=== PATIENT | female | born 1955 | race Caucasian/White ===

== ENCOUNTER 2019-03-26 18:00 | Emergency (ER) | payer OTHER ==
--- NOTE | 2019-03-26 18:05 | ER Report ---
History and Physical Time Seen By MD: 18:01 HPI/ROS CHIEF COMPLAINT: Neck pain, altered mental status HISTORY OF PRESENT ILLNESS: 63-year-old female with a history of hypothyroidism on replacement moved to [facility] 10 weeks ago. She's been having some trouble adjusting to the altitude. She is return back to [place] and return if she really notes that when she comes back altitude. She does have some shortness of breath. Patient denies history of cardiac symptoms, hyperlipidemia or blood pressure problems. Patient's been caring for her 4 grandchildren ages 3,5,7 and 9 over the last week. This morning she woke up with severe left neck pain which got progressively worse today. She tried 2 ibuprofen this morning without improvement. She took a 3rd several hours later with no change. This afternoon she had an episode where she seemed unresponsive for approximately 1 minute, not talking. She did not collapse or lose muscle tone. Patient's been feeling very fatigued while caring for her grandchildren. Patient notes no vision changes, speech changes, numbness, tingling or weakness in any of her extremities. Patient also took some CBD oil this afternoon. Patient admits that her doctors advised her that her thyroid replacement need to be reduced. And that she is slightly hyperthyroid. She has not yet reduced it the last 2 months. REVIEW OF SYSTEMS: Respiratory: No cough, no dyspnea. Cardiovascular: No chest pain, no palpitations. Gastrointestinal: No vomiting, no abdominal pain. Musculoskeletal: No back pain. Allergies: Coded Allergies: No Known Drug Allergies (Unverified , 03/26/19) Home Meds Active Scripts Hydrocodone Bit/Acetaminophen (HYDROCODON-ACETAMINOPHEN 5-325) 1 Each Tablet, 1 EACH PO Q4-6H PRN for PAIN, #10 TAKE ONE TABLET BY MOUTH EVERY 4-6 HOURS NEEDED FOR PAIN Prov:CORINNE LUNA DO 03/26/19 Methocarbamol (ROBAXIN-750) 750 Mg Tablet, 1 TAB PO TID PRN for muscle spasm relief, #15 Prov:CORINNE LUNA DO 03/26/19 Reported Medications Levothyroxine Sodium (LEVOTHYROXINE SODIUM) 75 Mcg Tablet, 75 MCG PO QDAY, TAB 03/26/19 Reviewed Nurses Notes: Yes Old Medical Records Reviewed: Yes Constitutional Vital Sign - Last 24 Hours 03/26/19 03/26/19 03/26/19 03/26/19 18:01 18:06 18:12 19:00 Temp 98.4 Pulse 73 67 Resp 16 B/P (MAP) 143/91 (108) 143/91 119/68 (85) Pulse Ox 90 92 O2 Delivery Room Air O2 Flow Rate 2.0 Intake and Output 03/26/19 03/26/19 03/27/19 15:03 23:03 07:03 Intake Total 150 ml Balance 150 ml Physical Exam Vital signs stable, afebrile, pulse ox 90% on room air General Appearance: The patient is alert, has no immediate need for airway protection and no current signs of toxicity. Slightly pale appearing, slow mental affect, alert and oriented 3., No facial droop HEENT: Pupils equal and round no injection. TMs normal, oropharynx without redness or exudate. Membranes appear slightly dry Respiratory: Chest is non tender, lungs are clear to auscultation. Cardiac: regular rate and rhythm, no murmur Gastrointestinal: Abdomen is soft and non tender, no masses, bowel sounds normal. Musculoskeletal: Neck: Neck is supple and non tender. Extremities have full range of motion and are non tender. Skin: No rashes or lesions. Neuro alert and oriented 3, cranial nerves II through XII intact motor 5/5 supervisor doping, sensory intact to light touch 4 DIFFERENTIAL DIAGNOSIS: After history and physical exam differential diagnosis was considered for altered mental status including but not limited to hypoglycemia, infectious process, electrolyte abnormality, head injury and intoxicants. Additionally,weakness including but not limited to electrolyte abnormality, depression, anxiety, CVA, spinal cord abnormality, and infectious causes. Medical Decision Making Data Points Result Diagram: 03/26/19180903/26/191809 Laboratory Hematology Test 03/26/19 18:10 White Blood Count 13.1 k/uL (4.5-11.0) H Red Blood Count 5.42 M/uL (4.17-5.56) Hemoglobin 15.6 g/dL (12.0-16.0) Hematocrit 45.9 % (34.0-47.0) Mean Corpuscular Volume 84.6 fL (80.0-96.0) Mean Corpuscular Hemoglobin 28.8 pg (26.0-33.0) Mean Corpuscular Hemoglobin Concent 34.0 g/dL (32.0-36.0) Red Cell Distribution Width 14.1 % (11.5-14.5) Platelet Count 302 K/uL (150-450) Mean Platelet Volume 8.0 fL (7.2-11.1) Neutrophils (%) (Auto) 64.1 % (39.4-72.5) Lymphocytes (%) (Auto) 26.1 % (17.6-49.6) Monocytes (%) (Auto) 7.8 % (4.1-12.4) Eosinophils (%) (Auto) 1.0 % (0.4-6.7) Basophils (%) (Auto) 1.0 % (0.3-1.4) Nucleated RBC Relative Count (auto) 0.0 /100WBC Neutrophils # (Auto) 8.4 K/uL (2.0-7.4) H Lymphocytes # (Auto) 3.4 K/uL (1.3-3.6) Monocytes # (Auto) 1.0 K/uL (0.3-1.0) Eosinophils # (Auto) 0.1 K/uL (0.0-0.5) Basophils # (Auto) 0.1 K/uL (0.0-0.1) Nucleated RBC Absolute Count (auto) 0.00 K/uL Chemistry Test 03/26/19 18:08 03/26/19 18:10 Whole Blood Glucose 134 mg/DL (75-110) Sodium Level 138 mmol/L (137-145) Potassium Level 4.1 mmol/L (3.5-5.0) Chloride Level 103 mmol/L (98-107) Carbon Dioxide Level 24 mmol/L (22-31) Blood Urea Nitrogen 18 mg/dl (7-18) Creatinine 0.90 mg/dl (0.52-1.04) Glomerular Filtration Rate Calc > 60.0 Random Glucose 148 mg/dl (75-110) Calcium Level 10.0 mg/dl (8.4-10.2) Total Bilirubin 0.8 mg/dl (0.2-1.3) Aspartate Amino Transf (AST/SGOT) 27 U/L (0-35) Alanine Aminotransferase (ALT/SGPT) 39 U/L (0-56) Alkaline Phosphatase 107 U/L (0-126) Troponin I < 0.012 ng/ml Total Protein 8.1 g/dl (6.3-8.2) Albumin 4.5 g/dl (3.5-5.0) Coagulation Test 03/26/19 18:10 Prothrombin Time 13.0 seconds (12.0-14.4) Prothromb Time International Ratio 0.98 Activated Partial Thromboplast Time 26 seconds (23-35) Urinalysis Test 03/26/19 19:18 Urine Color Yellow Urine Clarity Slightly-cloudy Urine pH 5.0 pH (4.8-9.5) Urine Specific [place] 1.018 Urine Protein Negative mg/dL (NEGATIVE) Urine Glucose (UA) Negative mg/dL (NEGATIVE) Urine Ketones Trace mg/dL (NEGATIVE) Urine Blood Negative (NEGATIVE) Urine Nitrite Negative (NEGATIVE) Urine Bilirubin Negative (NEGATIVE) Urine Urobilinogen Negative mg/dL (0.2-1.9) Urine Leukocyte Esterase Negative (NEGATIVE) Urine RBC <1 /HPF (0-2/HPF) Urine WBC 1 /HPF (0-5/HPF) Urine Squamous Epithelial Cells Few /LPF (</=FEW) Urine Bacteria Few /HPF (NONE-FEW) Urine Hyaline Casts Few /LPF (NONE-FEW) Urine Mucus None /HPF (NONE-FEW) EKG/Imaging EKG Interpretation 12 lead EK Rhythm: normal sinus rhythm Frederica: normal QRS: normal,? Old anterior Q waves ST segments: normal, no previous EKGs for comparison Imaging Results: CT scan of the [head] was obtained. The results of the study are [normal]. The study was read by the radiologist. I viewed the images myself on the PACS system. ED Course/Re-evaluation Clinical Indication for ER IV: IV Access ED Course Patient was admitted to an examination room. H&P was done. The differential diagnosis was considered. Patient from her description sounds like she woke up with cervical strain on the left side of her neck from holding her grandkids over the last several days. She is quite fatigued and did not sleep well last night. She took some ibuprofen without improvement. She took some CBD oil, which I think made her quite altered. She had a's Episode. She Was Brought in by Her As a Possible Stroke. She's Been Having Symptoms since This Morning. She Has a Nonfocal Neurologic Examination. Extensive Evaluation Including a Head CT Was Negative for Any Findings. Patient's Reassured and She Feels Much Better after Fluid Hydration. She Is Advised to Follow-Up with Primary Care since She Is New to [facility] and Get Established for Prediabetes and Management of Her Thyroid Disease. Decision to Disposition Date: Mar 26, 2019 Decision to Disposition Time: 19:00 Depart Departure Latest Vital Signs Vital Signs Date Time Temp Pulse Resp B/P (MAP) Pulse Ox O2 Delivery O2 Flow Rate FiO2 03/26/19 19:00 67 119/68 (85) 92 03/26/19 18:12 2.0 03/26/19 18:06 98.4 16 Room Air Impression: Primary Impression: Cervical strain, acute Additional Impressions: Fatigue Altered mental status, unspecified Hypothyroidism Pre-diabetes Condition: Improved Disposition: HOME OR SELF-CARE Referrals: CARLOS DELGADILLO MD, FARRUKH MD New Scripts Hydrocodone Bit/Acetaminophen (HYDROCODON-ACETAMINOPHEN 5-325) 1 Each Tablet 1 EACH PO Q4-6H PRN for PAIN, #10 TAKE ONE TABLET BY MOUTH EVERY 4-6 HOURS NEEDED FOR PAIN Prov: CORINNE LUNA DO 03/26/19 Methocarbamol (ROBAXIN-750) 750 Mg Tablet 1 TAB PO TID PRN for muscle spasm relief, #15 Prov: CORINNE LUNA DO 03/26/19 Patient Instructions: Cervical Strain (ED), Fatigue (ED) Additional Instructions: Take ibuprofen 200 mg 3 tablets 3 times a day with food Apply heating pad to your left neck to help the muscles relax Follow-up with primary care Dr Almeida or Michael next week to get established for care Problem Qualifiers Primary Impression: Cervical strain, acute Encounter type: initial encounter Qualified Codes: S16.1XXA - Strain of muscle, fascia and tendon at neck level, initial encounter Additional Impressions: Fatigue Fatigue type: unspecified Qualified Codes: R53.83 - Other fatigue Altered mental status, unspecified Altered mental status type: transient alteration of awareness Qualified Codes: R40.4 - Transient alteration of awareness Hypothyroidism Hypothyroidism type: unspecified Qualified Codes: E03.9 - Hypothyroidism, unspecified CORINNE LUNA DO Mar 26, 2019 18:05
[2019-03-26] MEDS ORDERED: NS(*) 0.9% 1000 ML BAG 1,000 ML IV ONE (18:10)
[2019-03-26] MEDS ORDERED: LEVO75TA73 PO (18:31)
[2019-03-26 18:34] LABS: PLATELET COUNT, AUTOMATED 302 K/uL (150-450)
--- NOTE | 2019-03-26 18:34 | EKG ---
FACILITY: [facility] PATIENT NAME: RIKA MENDIOLA : [id number] MR: [id number] V: [id number] EXAM DATE: ORDERING PHYSICIAN: CORINNE LUNA TECHNOLOGIST: SPENCER Test Reason : NECK PAIN Blood Pressure : / mmHG Vent. Rate : 063 BPM Atrial Rate : 063 BPM P-R Int : 176 ms QRS Dur : 078 ms QT Int : 400 ms P-R-T Axes : 049 009 048 degrees QTc Int : 409 ms Normal sinus rhythm Anterior infarct , age undetermined Abnormal ECG No previous ECGs available Confirmed by TAYLOR GUTIÉRREZ ([id number]) on 03/26/2019 9:40:46 PM Referred By: JEREMY Confirmed By:TAYLOR GUTIÉRREZ
[2019-03-26 18:39] LABS: INR 0.98
[2019-03-26 19:00] VITALS: BP 119/68
[2019-03-26] MEDS ORDERED: METH-543 PO (19:07)
[2019-03-26] MEDS ORDERED: LOR5/325 PO (19:07)
--- NOTE | 2019-03-26 19:09 | RADIOLOGY IMAGING REPORT ---
FACILITY: [facility] [place] PATIENT NAME: Debbie Palacios : 1955 MR: [id number] V: [id number] EXAM DATE: ORDERING PHYSICIAN: CORINNE LUNA TECHNOLOGIST: Location: [facility] [place] Patient: Debbie Palacios : 1955 Visit/Account:[id number] Date of Sevice: 03/26/2019 EXAMINATION: CT head without IV contrast HISTORY: Weakness. AMS. TECHNIQUE: Axial CT images of the head were obtained from the vertex to the skull base without IV c ontrast, with coronal and sagittal 2D reconstructed images. One of the following dose optimization techniques was utilized in the performance of this exam: Autom ated exposure control; adjustment of the mA and/or kV according to the patient's size; or use of an i terative reconstruction technique. Specific details can be referenced in the facility's radiology C T exam operational policy. COMPARISON: None. FINDINGS: Mild age-appropriate parenchymal volume loss. No CT evidence of intracranial hemorrhage, mass lesion, or acute infarct. No midline shift or extra-axial fluid collections. Bishop-white differentiation is m aintained. The calvarium is intact. The partially visualized paranasal sinuses and mastoid air cells are unopaci fied. IMPRESSION: No CT evidence of acute intracranial pathology. Report Dictated By: Jaycob Do MD at 03/26/2019 6:56 PM Report E-Signed By: Jaycob Do MD at 03/26/2019 7:01 PM WSN:[id number]
[2019-03-26] MEDS ORDERED: ACET/HYDROC 5/325MG TH ER ONLY 2 TAB/BOTTLE PO ONE (19:45)
[2019-03-26] MEDS ORDERED: METHOCARBAMOL 500 MG TAB PO ONE (19:45)
== END 2019-03-26 19:55 | disposition home or self-care (01) ==
LOC: ER 18:06
DX: S16.1XXA Strain of muscle, fascia and tendon at neck level, initial encounter (principal); R53.83 Other fatigue; R40.4 Transient alteration of awareness; E03.9 Hypothyroidism, unspecified; R73.03 Prediabetes
CPT/HCPCS: 36416; 70450; 81001; 82948; 83036; 84443; 84484; 85025; 85610; 85730; 93005; 96360; 96361; 99284; J7030; 82040; 82247; 82310; 82374; 82435; 82565; 82947; 84075; 84132; 84155; 84295; 84450; 84460; 84520

== ENCOUNTER → 2019-03-28 | Outpatient (CLI) | payer OTHER ==
[~2019-03-28] MED LIST: LEVO75TA73 PO; LOR5/325 PO; METH-543 PO
--- NOTE | 2019-03-28 16:41 | RADIOLOGY IMAGING REPORT ---
[place] [facility] [place] NAME: Debbie Palacios : 1955 MR: [id number] V: [id number] EXAM DATE: ORDERING PHYSICIAN: DELIA GOLDBERG TECHNOLOGIST: Location: [facility] [place] Patient: Debbie Palacios : 1955 Visit/Account:[id number] Date of Sevice: 03/28/2019 CERVICAL SPINE 2 OR 3 VIEW Indication: Pain., Comparison: None available. Findings: The prevertebral soft tissues are within normal limits. The vertebral body heights are well maintained. There is straightening and mild reversal the normal cervical lordosis. Diffuse multilevel degenerati ve disc space disease is present most pronounced at C6-7. Endplate osteophyte formation is also note d. IMPRESSION: 1. Diffuse multilevel degenerative disc space disease with straightening of the normal lordosis, no acute bony abnormalities identified. Report Dictated By: Rafael Loera at 03/28/2019 4:32 PM Report E-Signed By: Rafael Loera at 03/28/2019 4:33 PM WSN:[email or web address]
== END ==
LOC: RAD 16:06
PROVIDERS: ATTEND Family Medicine
DX: M54.2 Cervicalgia (principal)
CPT/HCPCS: 72040